=== PATIENT | male | born 1990 | race Caucasian/White ===

== ENCOUNTER → 2023-05-13 07:26 | Outpatient (REF) | payer OTHER, SELFPAY | LOC: RAD 07:26 | PROVIDERS: ATTENDING PHYSICIAN Orthopaedic Surgery Hand Surgery; FAMILY PHYSICIAN Family Medicine | DX: M79.641 Pain in right hand (principal); S62.316A Displaced fracture of base of fifth metacarpal bone, right hand, initial encounter for closed fracture | CPT/HCPCS: 73200 ==